=== PATIENT | male | born 1965 | race African-American/Black ===

== ENCOUNTER 2019-06-16 02:21 | Emergency (ER) | payer SELFPAY ==
[~2019-06-16] VITALS: Ht 185.4 cm; Wt 87.0 kg
[2019-06-16] MEDS ORDERED: SODIUM CHLORIDE 0.9% 1,000 ML IV ONE (06:02)
[2019-06-16] MEDS ORDERED: KETOROLAC 30MG/ML VIAL IV ONE (06:15)
[2019-06-16] MEDS ORDERED: HYDROCODONE/ACETAMINOPHEN 5/325MG TABLET PO ONE (06:15)
[2019-06-16 06:17] LABS: HEMATOCRIT. 45.6 % (42.0-52.0); HEMOGLOBIN. 15.6 g/dL (14.0-18.0); MEAN CORPUSCULAR HEMOGLOBIN 31.7 pg (28.0-32.0); MEAN CORPUSCULAR VOLUME 92.9 fL (80.0-94.0); MEAN PLATELET VOLUME 9.4 fl (7.4-10.4); PLATELET 228 x1000/uL (130-400); RED BLOOD CELL COUNT 4.91 mill/uL (4.7-6.1); RED CELL DISTRIBUTION WIDTH 13.7 % (11.6-14.6)
[2019-06-16 06:18] LABS: CHLORIDE 103 mEq/L (98-107)
[2019-06-16 06:26] LABS: INR 0.9; PROTHROMBIN TIME 9.5 sec (9.6-11.0)
[2019-06-16] MEDS ORDERED: POTASSIUM CHLORIDE 20MEQ TABLET SR PO ONE (07:30)
[2019-06-16 07:50] LABS: CLARITY URINE CLEAR (CLEAR); COLOR URINE YELLOW (YELLOW); KETONES URINE 3+ (NEGATIVE); LEUKOCYTE ESTERASE URINE NEGATIVE (NEGATIVE); NITRITE URINE NEGATIVE (NEGATIVE); OCCULT BLOOD URINE NEGATIVE (NEGATIVE); PH URINE 7.5 (4.5-8.0); PROTEIN URINE TRACE (NEGATIVE); SPECIFIC GRAVITY URINE 1.021 (1.005-1.030); UROBILINOGEN URINE 0.2 E.U./dL (0.2-1.0)
[2019-06-16 08:30] VITALS: BP 156/100
[2019-06-16 09:46] LABS: PLATELET ESTIMATE NORMAL
== END 2019-06-16 09:20 | disposition home or self-care (01) ==
LOC: ER 02:21
DX: R07.89 Other chest pain (principal); I48.91 Unspecified atrial fibrillation; I11.0 Hypertensive heart disease with heart failure; I50.9 Heart failure, unspecified; R05 Cough; R01.1 Cardiac murmur, unspecified
CPT/HCPCS: 36415; 71045; 80053; 81003; 83690; 83880; 84484; 85025; 85610; 93005; 96374; 99284; J1885; J7030

== ENCOUNTER 2021-01-19 20:46 | Emergency (ER) | payer SELFPAY | END 2021-01-19 21:31 | disposition left against medical advice (07) | LOC: ER 20:49 | DX: Z53.21 Procedure and treatment not carried out due to patient leaving prior to being seen by health care provider (principal) ==

== ENCOUNTER 2021-01-20 05:45 | Inpatient (IN) | payer SELFPAY ==
[~2021-01-20] VITALS: Ht 188 cm; Wt 72.6 kg
[2021-01-20] MEDS ORDERED: MAGNESIUM/ALUMINUM HYDROXIDE/SIMETHICONE 30ML UDC PO STA (07:34)
[2021-01-20] MEDS ORDERED: ONDANSETRON 4MG ODT PO STA (07:34)
[2021-01-20 08:22] LABS: HEMATOCRIT. 48.6 % (42.0-52.0); HEMOGLOBIN. 16.4 g/dL (14.0-18.0); MEAN CORPUSCULAR HEMOGLOBIN 32.1 pg (28.0-32.0); MEAN CORPUSCULAR VOLUME 95.1 fL (80.0-94.0); MEAN PLATELET VOLUME 8.4 fl (7.4-10.4); PLATELET 335 x1000/uL (130-400); RED BLOOD CELL COUNT 5.11 mill/uL (4.7-6.1); RED CELL DISTRIBUTION WIDTH 13.9 % (11.6-14.6)
[2021-01-20 08:23] LABS: CHLORIDE 101 mEq/L (98-107)
[2021-01-20 08:28] LABS: ETHANOL BLOOD < 10 mg/dL
[2021-01-20] MEDS ORDERED: KETOROLAC 30MG/ML VIAL IV STA (08:59)
[2021-01-20] MEDS ORDERED: SODIUM CHLORIDE 0.9% 1,000 ML IV ONE (09:00)
[2021-01-20 10:09] LABS: *AMPHETAMINES SCREEN URINE NEGATIVE (NEGATIVE); *BARBITURATES SCREEN URINE NEGATIVE (NEGATIVE)
[2021-01-20 10:10] LABS: *BENZODIAZEPINES SCREEN URINE NEGATIVE (NEGATIVE); *COCAINE SCREEN URINE PRESUMTIVE POSITIVE (NEGATIVE); METHADONE URINE SCREEN NEGATIVE (NEGATIVE); OPIATES URINE SCREEN NEGATIVE (NEGATIVE)
[2021-01-20 10:11] LABS: CANNABINOID URINE SCREEN NEGATIVE (NEGATIVE); PHENCYCLIDINE URINE SCREEN NEGATIVE (NEGATIVE)
[2021-01-20] MEDS ORDERED: LORAZEPAM 0.5MG TABLET PO ONE (10:30)
[2021-01-20 11:12] LABS: PLATELET ESTIMATE NORMAL
[2021-01-20] MEDS ORDERED: METOPROLOL TARTRATE 5MG/5ML VIAL IV PRN (19:15)
[2021-01-20] MEDS ORDERED: HYDRALAZINE 20MG/ML VIAL IV PRN (19:15)
[2021-01-20] MEDS ORDERED: IPRATROPIUM/ALBUTEROL 0.5-3(2.5)MG/3ML NEB HHN PRN (19:15)
[2021-01-20] MEDS ORDERED: ONDANSETRON HCL 4MG/2ML INJ IV PRN (19:15)
[2021-01-20] MEDS ORDERED: ACETAMINOPHEN 325MG TABLET PO PRN (19:15)
[2021-01-20] MEDS ORDERED: CLONIDINE 0.1MG TABLET PO PRN (19:15)
[2021-01-20] MEDS ORDERED: LORAZEPAM 2MG/ML CPJ IV PRN (19:15)
[2021-01-20] MEDS ORDERED: DIPHENHYDRAMINE 50MG/ML VIAL IV PRN (19:15)
[2021-01-20] MEDS ORDERED: MAGNESIUM/ALUMINUM HYDROXIDE/SIMETHICONE 30ML UDC PO PRN (19:15)
[2021-01-20] MEDS ORDERED: DOCUSATE SODIUM 100MG CAPSULE PO PRN (19:15)
[2021-01-20] MEDS ORDERED: GUAIFENESIN 200MG/10ML SUGAR FREE UDC PO PRN (19:15)
[2021-01-20] MEDS ORDERED: NALOXONE HCL 0.4MG/ML VIAL IV PRN (19:45)
[2021-01-20] MEDS ORDERED: ENOXAPARIN 40MG/0.4ML SYR SUBCUT SCH (20:00)
[2021-01-20] MEDS: DEXT 5%/0.45% NACL 1000ML 1,000 ML IV SCH (20:14)
[2021-01-20] MEDS: SODIUM CHLORIDE 0.9% INJ 3ML FLUSH IVF SCH (22:36)
[2021-01-20 23:18] LABS: CREATINE KINASE 126 IU/L (39-308)
[2021-01-20 23:19] LABS: CREATINE KINASE MB FRACTION < 1.0 ng/mL (0.5-3.6)
[2021-01-21] VITALS (7 sets, daily range): BP systolic 108–152; BP diastolic 74–100
[2021-01-21] MEDS: TRAMADOL 50MG TABLET PO PRN ×2 (01:29→08:12)
[2021-01-21] MEDS ORDERED: TOPUD PO (02:22)
[2021-01-21] MEDS ORDERED: IBUP1TAB69 PO (02:23)
[2021-01-21] MEDS: SODIUM CHLORIDE 0.9% INJ 3ML FLUSH IVF SCH ×3 (05:56→21:40)
[2021-01-21 07:40] LABS: CHLORIDE 101 mEq/L (98-107); HEMATOCRIT. 43.9 % (42.0-52.0); MEAN CORPUSCULAR HEMOGLOBIN 32.2 pg (28.0-32.0); MEAN CORPUSCULAR VOLUME 94.1 fL (80.0-94.0); MEAN PLATELET VOLUME 8.8 fl (7.4-10.4); PLATELET 361 x1000/uL (130-400); RED BLOOD CELL COUNT 4.67 mill/uL (4.7-6.1)
[2021-01-21 07:50] LABS: CREATINE KINASE 108 IU/L (39-308)
[2021-01-21 07:52] LABS: CREATINE KINASE MB FRACTION < 1.0 ng/mL (0.5-3.6)
[2021-01-21] MEDS: DEXT 5%/0.45% NACL 1000ML 1,000 ML IV SCH ×2 (08:13→17:46)
[2021-01-21] MEDS ORDERED: MORPHINE SULFATE 2 MG/ML CPJ (NOT FOR IM USE) IV PRN (10:15)
[2021-01-21] MEDS ORDERED: KCL 20MEQ/100ML PREMIX 100 ML IV NR (11:30)
[2021-01-21] MEDS: PANTOPRAZOLE SODIUM 40 MG/VIAL IV SCH (11:35)
[2021-01-21] MEDS ORDERED: FOLIC ACID 1 MG, THIAMINE HCL 100 MG, MVI, ADULT NO.1 10 ML in DEXTROSE 5% WATER 1,000 ML IV SCH (12:30)
[2021-01-21] MEDS: ENOXAPARIN 80MG/0.8ML SYR SUBCUT SCH ×2 (12:49→23:58)
[2021-01-21] MEDS ORDERED: POTASSIUM CHLORIDE 20MEQ/PACKET PO NR (14:15)
[2021-01-21] MEDS: DILTIAZEM HCL 30MG TABLET PO SCH ×3 (15:16→23:59)
[2021-01-21] MEDS: METOCLOPRAMIDE HCL 10MG/2ML VIAL IV SCH ×2 (17:47→23:58)
[2021-01-21 20:51] LABS: PLATELET ESTIMATE NORMAL
[2021-01-22 00:12] VITALS: BP 124/79
[2021-01-22] MEDS: DEXT 5%/0.45% NACL 1000ML 1,000 ML IV SCH ×2 (02:32→11:22)
[2021-01-22 04:00] VITALS: BP 124/80
[2021-01-22] MEDS: METOCLOPRAMIDE HCL 10MG/2ML VIAL IV SCH ×2 (05:26→11:37)
[2021-01-22] MEDS: DILTIAZEM HCL 30MG TABLET PO SCH (05:27)
[2021-01-22] MEDS: SODIUM CHLORIDE 0.9% INJ 3ML FLUSH IVF SCH (05:27)
[2021-01-22 06:18] LABS: BASOPHILS % 0.5 % (0.0-2.0); EOSINOPHILS % 0.3 % (0.0-5.0); HEMATOCRIT. 41.7 % (42.0-52.0); HEMOGLOBIN. 14.2 g/dL (14.0-18.0); LYMPHOCYTES % 20.4 % (20.0-50.0); MEAN CORPUSCULAR HEMOGLOBIN 32.4 pg (28.0-32.0); MEAN CORPUSCULAR VOLUME 95.4 fL (80.0-94.0); MEAN PLATELET VOLUME 9.2 fl (7.4-10.4); MONOCYTES % 9.5 % (2.0-8.0); NEUTROPHILS % 69.3 % (40.0-76.0); PLATELET 291 x1000/uL (130-400); RED BLOOD CELL COUNT 4.37 mill/uL (4.7-6.1); RED CELL DISTRIBUTION WIDTH 13.7 % (11.6-14.6)
[2021-01-22 06:24] LABS: PROTHROMBIN TIME 10.5 sec (9.6-11.0)
[2021-01-22 06:31] LABS: CHLORIDE 100 mEq/L (98-107)
[2021-01-22 06:37] LABS: AMYLASE 60 IU/L (25-115)
[2021-01-22 06:38] LABS: PHOSPHORUS 2.7 mg/dL (2.5-4.9)
[2021-01-22 06:39] LABS: LDL CHOLESTEROL 109 mg/dL (5-100)
[2021-01-22 06:40] LABS: HDL CHOLESTEROL 58 mg/dL (40-59)
[2021-01-22 08:00] VITALS: BP 124/80
[2021-01-22] MEDS: PANTOPRAZOLE SODIUM 40 MG/VIAL IV SCH (08:38)
[2021-01-22] MEDS ORDERED: POTASSIUM CHLORIDE 20MEQ/PACKET PO NR (09:00)
[2021-01-22] MEDS ORDERED: POTASSIUM CHLORIDE INJ 40 MEQ in DEXT 5% WATER 250 ML IV NR (10:00)
[2021-01-22] MEDS ORDERED: DILTIAZEM HCL 120MG CAPSULE CD 24HR PO SCH (14:00)
[2021-01-22] MEDS ORDERED: RIVAROXABAN 20 MG TABLET PO SCH (17:00)
== END 2021-01-22 13:12 | disposition left against medical advice (07) | DRG 282 ==
LOC: ER 05:45 → MICUSO 12:02 → ENRESERV 13:11 → CANRESERV 13:11 → EDBEDREQ 20:35 → ENRESERV 21:02 → 6WST 01-21 00:01
PROVIDERS: ADMIT Internal Medicine; ATTEND Internal Medicine
DX: K85.90 Acute pancreatitis without necrosis or infection, unspecified (principal); I48.20 Chronic atrial fibrillation, unspecified; E86.0 Dehydration; E87.1 Hypo-osmolality and hyponatremia; E87.6 Hypokalemia; F14.10 Cocaine abuse, uncomplicated; Z20.822 Contact with and (suspected) exposure to COVID-19; Z53.29 Procedure and treatment not carried out because of patient's decision for other reasons; F17.210 Nicotine dependence, cigarettes, uncomplicated; Z79.01 Long term (current) use of anticoagulants; Z91.19 Patient's noncompliance with other medical treatment and regimen; Z71.6 Tobacco abuse counseling; Z79.899 Other long term (current) drug therapy; Z71.51 Drug abuse counseling and surveillance of drug abuser
CPT/HCPCS: 36415; 74176; 80048; 80053; 80061; 80305; 80320; 82150; 82550; 82553; 83735; 83880; 84100; 84484; 85025; 87426; 93005; 93306; 93970; 99285; C9113; J1650; J1885; J2060; J2405; J2765; J3411; J3480; J3490; J7030; J7060; J7070; Q0162; G0480

== ENCOUNTER 2022-10-11 16:15 | Emergency (ER) | payer MEDICAID, OTHER ==
[~2022-10-11] VITALS: Ht 188 cm; Wt 73.0 kg
[~2022-10-11 16:15] MED LIST: IBUP1TAB69 PO; TOPUD PO
[2022-10-11 17:35] LABS: BASOPHILS % 0.9 % (0.0-2.0); EOSINOPHILS % 1.4 % (0.0-5.0); HEMOGLOBIN. 13.8 g/dL (14.0-18.0); LYMPHOCYTES % 21.7 % (20.0-50.0); MEAN CORPUSCULAR HEMOGLOBIN 31.1 pg (28.0-32.0); MEAN CORPUSCULAR VOLUME 90.2 fL (80.0-94.0); MEAN PLATELET VOLUME 8.9 fl (7.4-10.4); MONOCYTES % 8.1 % (2.0-8.0); NEUTROPHILS % 67.9 % (40.0-76.0); PLATELET 299 x1000/uL (130-400); RED BLOOD CELL COUNT 4.44 mill/uL (4.7-6.1); RED CELL DISTRIBUTION WIDTH 14.4 % (11.6-14.6)
[2022-10-11 17:45] LABS: CLARITY URINE CLEAR (CLEAR); COLOR URINE DARK YELLOW (YELLOW); KETONES URINE TRACE (NEGATIVE); LEUKOCYTE ESTERASE URINE NEGATIVE (NEGATIVE); NITRITE URINE NEGATIVE (NEGATIVE); OCCULT BLOOD URINE NEGATIVE (NEGATIVE); PROTEIN URINE 1+ (NEGATIVE); SPECIFIC GRAVITY URINE 1.036 (1.005-1.030)
[2022-10-11 17:50] LABS: INR 0.9
[2022-10-11 17:58] LABS: CHLORIDE 109 mEq/L (98-107)
[2022-10-11 18:03] LABS: *AMPHETAMINES SCREEN URINE NEGATIVE (NEGATIVE); *BARBITURATES SCREEN URINE NEGATIVE (NEGATIVE); *BENZODIAZEPINES SCREEN URINE NEGATIVE (NEGATIVE); *COCAINE SCREEN URINE PRESUMTIVE POSITIVE (NEGATIVE); CANNABINOID URINE SCREEN PRESUMTIVE POSITIVE (NEGATIVE); METHADONE URINE SCREEN NEGATIVE (NEGATIVE); OPIATES URINE SCREEN NEGATIVE (NEGATIVE); PHENCYCLIDINE URINE SCREEN PRESUMTIVE POSITIVE (NEGATIVE)
[2022-10-11 18:09] LABS: ETHANOL BLOOD < 10 mg/dL
[2022-10-11 20:38] VITALS: BP 152/87
== END 2022-10-11 20:39 | disposition home or self-care (01) ==
LOC: ER 16:15
DX: M54.30 Sciatica, unspecified side (principal); I48.91 Unspecified atrial fibrillation; I10 Essential (primary) hypertension
CPT/HCPCS: 36415; 70496; 70498; 80053; 80305; 80320; 81003; 85025; 93005; 99285; G0480

== ENCOUNTER 2023-04-20 10:59 | Emergency (ER) | payer OTHER ==
[~2023-04-20] VITALS: Ht 185.4 cm; Wt 75.0 kg
[2023-04-20 11:10] VITALS: BP 159/109; PULSE 101; RESP 18; TEMP 99; O2SAT 96
== END 2023-04-20 11:18 | disposition left against medical advice (07) ==
LOC: ER 11:18
DX: Z00.00 Encounter for general adult medical examination without abnormal findings (principal); Z53.21 Procedure and treatment not carried out due to patient leaving prior to being seen by health care provider
CPT/HCPCS: 82962

== ENCOUNTER 2023-07-05 11:15 | Emergency (ER) | payer OTHER ==
[~2023-07-05] VITALS: Ht 188 cm; Wt 83.0 kg
[2023-07-05 11:22] VITALS: O2SAT 100
[2023-07-05 11:41] LABS: BASOPHILS % 0.5 % (0.0-2.0); EOSINOPHILS % 0.5 % (0.0-5.0); HEMATOCRIT. 40.2 % (42.0-52.0); HEMOGLOBIN. 13.1 g/dL (14.0-18.0); LYMPHOCYTES % 16.6 % (20.0-50.0); MEAN CORPUSCULAR HEMOGLOBIN 31.5 pg (28.0-32.0); MEAN CORPUSCULAR HGB CONC 32.6 g/dL (31.0-37.0); MEAN CORPUSCULAR VOLUME 96.6 fL (80.0-94.0); MEAN PLATELET VOLUME 7.9 fl (7.4-10.4); MONOCYTES % 8.4 % (2.0-8.0); PLATELET 237 x1000/uL (130-400); RED BLOOD CELL COUNT 4.16 mill/uL (4.7-6.1); RED CELL DISTRIBUTION WIDTH 13.7 % (11.6-14.6); WHITE BLOOD COUNT 6.5 x1000/uL (4.5-11.0)
[2023-07-05 11:55] LABS: ALANINE AMINOTRANSFERASE 22 IU/L (10-49); ALBUMIN 4.3 g/dL (3.2-4.8); ASPARTATE AMINOTRANSFERASE 27 IU/L (<34); BILIRUBIN TOTAL 0.6 mg/dL (0.1-1.0); CALCIUM 9.3 mg/dL (8.7-10.4); CARBON DIOXIDE 25 mEq/L (21-32); CHLORIDE 102 mEq/L (98-107); CREATININE 0.9 mg/dL (0.6-1.3); GLUCOSE 113 mg/dL (70-105); POTASSIUM 3.5 mEq/L (3.5-5.1); PROTEIN TOTAL 7.3 g/dL (6.0-8.3); SODIUM 136 mEq/L (136-145); TROPONIN I HIGH SENSITIVITY 39 ng/L (3.0-53); UREA NITROGEN BLOOD 10 mg/dL (9-23)
[2023-07-05] MEDS ORDERED: ONDANSETRON 4MG ODT PO ONE (12:30)
[2023-07-05] MEDS ORDERED: FAMOTIDINE 20MG TABLET PO SCH (12:30)
[2023-07-05] MEDS ORDERED: PROT40 MT (13:05)
[2023-07-05] MEDS ORDERED: ONDA4TAB11 PO (13:05)
[2023-07-05 13:33] VITALS: BP 134/87; PULSE 88; RESP 16; TEMP 97.9
== END 2023-07-05 13:34 | disposition home or self-care (01) ==
LOC: ER 12:14
DX: K52.9 Noninfective gastroenteritis and colitis, unspecified (principal); F14.10 Cocaine abuse, uncomplicated
CPT/HCPCS: 99284; 80053; 83690; 85025; 84484; 36415; 93005; Q0162